=== PATIENT | male | born 1935 | race Caucasian/White ===

== ENCOUNTER 2020-12-24 10:48 | Inpatient (IN) | payer OTHER, MEDICARE ==
[~2020-12-24] VITALS: Ht 180.3 cm; Wt 92.5 kg
[~2020-12-24 10:48] MED LIST: AMIO200 PO; ASPI325 PO; ASPI81CH PO; AUGMENTIN600 MG/5 M PO; Actos45 MG PO; Avapro300 MG PO; B-121000 MCG PO; BUME2 PO; Cardizem Cd180 MG; ELIQUIS2.5 MG PO; GLYMET5 PO; IRBHYD300 PO; LEVEMIR100 UNIT/1 SC; METO50 PO; METO50ER PO; NAC600 MG PO; NISOLDIPINE8.5 MG PO; PARI1 PO; PRAV20 PO; VITAMIN D31000 UNI1 PO
[2020-12-24 11:13] LABS: BASOPHILS ABSOLUTE AUTO 0.09 K/mm3 (0.00-0.23); BASOPHILS PERCENT AUTO 1 % (0-2); EOSINOPHILS ABSOLUTE AUTO 0.66 K/mm3 (0.00-0.68); EOSINOPHILS PERCENT AUTO 7 % (0-6); Hematocrit 37.3 % (37.0-53.0); Hemoglobin 12.1 g/dL (13.5-17.5); IMMATURE GRAN ABSOLUTE AUTO 0.05 K/mm3 (0.00-0.10); IMMATURE GRAN PERCENT AUTO 1 % (0-1); LYMPHOCYTES ABSOLUTE AUTO 1.75 K/mm3 (0.84-5.20); LYMPHOCYTES PERCENT AUTO 18 % (21-46); MONOCYTES PERCENT AUTO 11 % (4-13); Mean Corpuscular HGB 31.4 pg (26.0-34.0); Mean Corpuscular HGB Conc 32.4 g/dL (31.5-36.5); Mean Corpuscular Volume 97 fL (80-100); Mean Platelet Volume 10.6 fL (9.1-12.4); NEUTROPHILS PERCENT AUTO 63 % (41-73); Platelet Count 244 K/mm3 (150-400); RDW Coefficient Variation 13.2 % (11.7-14.2); RDW Standard Deviation 47.2 fL (35.1-46.3); Red Blood Cell Count 3.85 M/mm3 (4.30-5.90); White Blood Cell Count 9.55 K/mm3 (4.00-11.30)
[2020-12-24 11:30] LABS: Bun/Creatinine Ratio 16.8 (12.0-20.0); Calcium, Blood 8.6 mg/dL (8.5-10.1); Creatinine, Blood 2.85 mg/dL (0.60-1.20); Potassium, Blood 4.9 mmol/L (3.5-5.5)
[2020-12-24] MEDS ORDERED: NISOLDIPINE17 MG PO (12:15)
[2020-12-24] MEDS ORDERED: IRBESARTAN300 M3 PO (12:15)
[2020-12-24] MEDS ORDERED: PRAVASTATIN SOD20 MG PO (12:15)
[2020-12-24] MEDS ORDERED: FLUTICASONE-SA1 EAC8 INH ×2 (12:16→12:58)
[2020-12-24] MEDS ORDERED: NOVOLOG100 UNIT/2 SC (12:17)
[2020-12-24] MEDS ORDERED: Toprol Xl200 MG PO (12:57)
[2020-12-24] MEDS ORDERED: SYNTHROID50 MC1 PO (12:57)
[2020-12-24] MEDS ORDERED: PRAVASTATIN SOD10 MG PO (12:58)
[2020-12-24 13:12] LABS: SARS-Cov-2 (COVID-19) PCR, MMC NEGATIVE (NEGATIVE)
--- NOTE | 2020-12-24 18:50 | NUR ---
SHIFT SUMMARY PT A&O X4. PT IN PLEASENT MOOD. PT'S SPOUSE WAS @ BEDSIDE DURING VISITING HOURS. PT VSS. GOOD URINE OUTPUT VIA MICHEL. TOLERATING ORAL INTAKE WELL. PT VERBALIZED RELUCTANCE TO NARCOTIC PAIN MEDICATION, MEDICATED PAIN W/ NON-NARC PER EMAR. RESTING IN BED.
[2020-12-25 04:18] LABS: BASOPHILS ABSOLUTE AUTO 0.06 K/mm3 (0.00-0.23); BASOPHILS PERCENT AUTO 1 % (0-2); EOSINOPHILS ABSOLUTE AUTO 0.32 K/mm3 (0.00-0.68); EOSINOPHILS PERCENT AUTO 3 % (0-6); Hematocrit 25.9 % (37.0-53.0); Hemoglobin 8.4 g/dL (13.5-17.5); IMMATURE GRAN ABSOLUTE AUTO 0.05 K/mm3 (0.00-0.10); IMMATURE GRAN PERCENT AUTO 1 % (0-1); LYMPHOCYTES ABSOLUTE AUTO 1.56 K/mm3 (0.84-5.20); LYMPHOCYTES PERCENT AUTO 16 % (21-46); MONOCYTES ABSOLUTE AUTO 1.28 K/mm3 (0.16-1.47); MONOCYTES PERCENT AUTO 13 % (4-13); Mean Corpuscular HGB 31.6 pg (26.0-34.0); Mean Corpuscular HGB Conc 32.4 g/dL (31.5-36.5); Mean Corpuscular Volume 97 fL (80-100); Mean Platelet Volume 11.1 fL (9.1-12.4); NEUTROPHILS ABSOLUTE AUTO 6.25 K/mm3 (1.96-9.15); NEUTROPHILS PERCENT AUTO 66 % (41-73); Platelet Count 201 K/mm3 (150-400); RDW Coefficient Variation 13.2 % (11.7-14.2); RDW Standard Deviation 47.3 fL (35.1-46.3); Red Blood Cell Count 2.66 M/mm3 (4.30-5.90); White Blood Cell Count 9.52 K/mm3 (4.00-11.30)
[2020-12-25 05:02] LABS: Albumin, Blood 2.7 g/dL (3.4-5.0); Albumin/Globulin Ratio 0.9 (0.8-1.8); Bun/Creatinine Ratio 17.8 (12.0-20.0); Calcium, Blood 7.6 mg/dL (8.5-10.1); Creatinine, Blood 3.25 mg/dL (0.60-1.20); Magnesium, Blood 2.2 mg/dL (1.6-2.4); Potassium, Blood 5.5 mmol/L (3.5-5.5); Total Protein, Blood 5.7 g/dL (6.4-8.2)
--- NOTE | 2020-12-25 06:17 | NUR ---
SHIFT SUMMARY S/P L FEMUR FX, A/O X4, VSS, TOLERATING DIET BUT NPO SINCE MIDNIGHT, PLAN FOR OR TODAY, ON BEDREST, NO ACUTE EVENTS THIS SHIFT. CALL LIGHT IN REACH, WILL CTM AND REPORT TO DAY RN.
--- NOTE | 2020-12-25 13:42 | NUR ---
PATIENT WAS BROUGHT TO DAY SURGERY FOR HIS PROCEDURE. History, Chart, Medications and Allergies reviewed before start of procedure.Lungs clear T/O to Auscultation. Patient confirms NPO status and agrees with scheduled surgery. Pre-Op teaching done. Pt verbalizes understanding.
--- NOTE | 2020-12-25 13:45 | NUR ---
PT TO SURGERY AT THIS TIME. TRANSPORTED ON BED.
--- NOTE | 2020-12-25 18:26 | NUR ---
PT BACK FROM SURGERY. DROWSY BUT AWAKENS EASILY TO VERBAL STIMULI. DRESSING TO L HIP CDI.
--- NOTE | 2020-12-25 19:20 | NUR ---
SHIFT SUMMARY PT HAS BEEN A/O X4. S/P L HIP SURGERY; TTWB. PT BACK FROM SURGERY THIS EVENING AND HAS BEEN DROWSY BUT AWAKENS EASILY. DENIES PAIN. VSS. PT ON 3L O2 POST-OP. DRESSING TO L HIP CDI. FAMILY NOTIFIED THAT PT WAS OUT OF SURGERY AND BACK IN ROOM.
[2020-12-26 04:46] LABS: BASOPHILS ABSOLUTE AUTO 0.02 K/mm3 (0.00-0.23); BASOPHILS PERCENT AUTO 0 % (0-2); EOSINOPHILS PERCENT AUTO 0 % (0-6); Hematocrit 21.4 % (37.0-53.0); Hemoglobin 6.7 g/dL (13.5-17.5); IMMATURE GRAN ABSOLUTE AUTO 0.05 K/mm3 (0.00-0.10); IMMATURE GRAN PERCENT AUTO 0 % (0-1); LYMPHOCYTES ABSOLUTE AUTO 0.89 K/mm3 (0.84-5.20); LYMPHOCYTES PERCENT AUTO 8 % (21-46); MONOCYTES ABSOLUTE AUTO 1.04 K/mm3 (0.16-1.47); MONOCYTES PERCENT AUTO 9 % (4-13); Mean Corpuscular HGB Conc 31.3 g/dL (31.5-36.5); Mean Corpuscular Volume 99 fL (80-100); Mean Platelet Volume 10.9 fL (9.1-12.4); NEUTROPHILS ABSOLUTE AUTO 9.66 K/mm3 (1.96-9.15); NEUTROPHILS PERCENT AUTO 83 % (41-73); Platelet Count 163 K/mm3 (150-400); RDW Coefficient Variation 13.3 % (11.7-14.2); RDW Standard Deviation 47.4 fL (35.1-46.3); Red Blood Cell Count 2.16 M/mm3 (4.30-5.90); White Blood Cell Count 11.66 K/mm3 (4.00-11.30)
[2020-12-26 05:15] LABS: Albumin, Blood 2.5 g/dL (3.4-5.0); Albumin/Globulin Ratio 0.8 (0.8-1.8); Bilirubin, Total 0.3 mg/dL (0.1-1.0); Bun/Creatinine Ratio 19.7 (12.0-20.0); Calcium, Blood 6.9 mg/dL (8.5-10.1); Creatinine, Blood 3.45 mg/dL (0.60-1.20); Globulin, Blood 3.1 g/dL (2.2-4.0); Magnesium, Blood 2.2 mg/dL (1.6-2.4); Potassium, Blood 5.5 mmol/L (3.5-5.5); Thyroid Stimulating Hormone 2.88 uIU/mL (0.360-4.800); Total Protein, Blood 5.6 g/dL (6.4-8.2)
--- NOTE | 2020-12-26 07:22 | NUR ---
SHIFT SUMMARY POD1 L INTRAMEDULLARY TROCHANTERIC LONG NAILING, A/O X4, VSS, PAIN WELL MANAGENT c TYLENOL PER PATIENT REQUEST (SEE EMAR), 1 UNIT BLOOD ORDERED NEAR END OF SHIFT DUE TO LOW HGB (SEE LABS). ABX COMPLETE. NO OTHER EVENTS THIS SHIFT. CALL LIGHT IN REACH, REPORT GIVEN TO DAY RN.
--- NOTE | 2020-12-26 16:57 | NUR ---
SHIFT SUMMARY PT HAS BEEN A/O X4. TOLERATING PO INTAKE. MICHEL IN PLACE DRAINING TO GRAVITY. DRESSING TO L HIP CHANGED BY DR GREGORIO THIS MORNING. PT WORKED WITH THERAPY AND WAS ABLE TO SIT IN CHAIR FOR A FEW HOURS. HE HAS BEEN DOING WELL TRANSFERRING WITH 1-2X ASSIST, FWW, AND GAIT BELT, MAINTAINING TTWB ON LLE. DR ROACH CONSULTED FOR PT TODAY; MEDS AND LABS ORDERED. PT ALSO HAD RENAL ULTRASOUND.
--- NOTE | 2020-12-27 04:12 | NUR ---
SHIFT SUMMARY NO ACUTE CHANGES THIS SHIFT. PT HAS RESTED WELL T/O NIGHT. AQUACEL DRESSINGS TO L LEG REMAIN UNCHANGED. DENIES NEED FOR PAIN MEDICATONS. ANAND PATENT. PT USES CALL LIGHT APPROPRIATELY.
[2020-12-27 04:51] LABS: Hematocrit 22.8 % (37.0-53.0); Hemoglobin 7.4 g/dL (13.5-17.5); Mean Corpuscular HGB 30.8 pg (26.0-34.0); Mean Corpuscular HGB Conc 32.5 g/dL (31.5-36.5); Mean Corpuscular Volume 95 fL (80-100); Mean Platelet Volume 11.2 fL (9.1-12.4); Platelet Count 164 K/mm3 (150-400); RDW Coefficient Variation 14.6 % (11.7-14.2); RDW Standard Deviation 50.8 fL (35.1-46.3); White Blood Cell Count 11.83 K/mm3 (4.00-11.30)
[2020-12-27 05:26] LABS: Albumin, Blood 2.4 g/dL (3.4-5.0); Albumin/Globulin Ratio 0.8 (0.8-1.8); Bilirubin, Total 0.4 mg/dL (0.1-1.0); Bun/Creatinine Ratio 21.2 (12.0-20.0); Calcium, Blood 7.8 mg/dL (8.5-10.1); Creatinine, Blood 3.45 mg/dL (0.60-1.20); Globulin, Blood 3.2 g/dL (2.2-4.0); Magnesium, Blood 1.8 mg/dL (1.6-2.4); Phosphorus, Blood 3.3 mg/dL (2.5-4.9); Potassium, Blood 5.1 mmol/L (3.5-5.5); Total Protein, Blood 5.6 g/dL (6.4-8.2)
[2020-12-27 14:08] LABS: SARS-Cov-2 (COVID-19) PCR, MMC NEGATIVE (NEGATIVE)
--- NOTE | 2020-12-27 16:44 | NUR ---
DISCHARGE SUMMARY PT A/O X4; PLEASANT AND COOPERATIVE WITH CARE. POD #2 FOR L FEMUR REPAIR. 1-2 ASSIST WHEN UP. BECAME WEAK WHEN AMBULATING IN THE [place] WITH PHYSICAL THERAPY AND ALMOST FELL. THIS HELPED THE PT TO MAKE THE DECISION TO DC TO SNF RATHER THAN HOME HEALTH. DENIES THE NEED FOR PAIN MEDICATION AT THIS TIME. MICHEL DC'D AND PT VOIDING ON HIS OWN. VSS. [facility].
== END 2020-12-27 16:29 | DRG 480 ==
LOC: ER 10:48 → ERHOLD 12:47 → SURS 12:47
PROVIDERS: Emergency Medicine; Internal Medicine; Nurse Practitioner Acute Care; Orthopaedic Surgery; ADMIT Internal Medicine
PROC: 0QS704Z Reposition Left Upper Femur with Internal Fixation Device, Open Approach (ICD-10-PCS; principal; 2020-12-25 14:15)
PROC: 30233N1 Transfusion of Nonautologous Red Blood Cells into Peripheral Vein, Percutaneous Approach (ICD-10-PCS; 2020-12-26)
DX: S72.92XA Unspecified fracture of left femur, initial encounter for closed fracture (principal); N17.0 Acute kidney failure with tubular necrosis; N25.81 Secondary hyperparathyroidism of renal origin; N18.4 Chronic kidney disease, stage 4 (severe); I13.0 Hypertensive heart and chronic kidney disease with heart failure and stage 1 through stage 4 chronic kidney disease, or unspecified chronic kidney disease; I50.22 Chronic systolic (congestive) heart failure; E87.5 Hyperkalemia; E78.5 Hyperlipidemia, unspecified; I48.91 Unspecified atrial fibrillation; E11.22 Type 2 diabetes mellitus with diabetic chronic kidney disease; E03.9 Hypothyroidism, unspecified; I44.7 Left bundle-branch block, unspecified; D63.1 Anemia in chronic kidney disease; Z79.01 Long term (current) use of anticoagulants; Z88.8 Allergy status to other drugs, medicaments and biological substances; Z79.84 Long term (current) use of oral hypoglycemic drugs; Z95.810 Presence of automatic (implantable) cardiac defibrillator; Z98.890 Other specified postprocedural states; Z79.82 Long term (current) use of aspirin; Z79.899 Other long term (current) drug therapy; W01.0XXA Fall on same level from slipping, tripping and stumbling without subsequent striking against object, initial encounter
CPT/HCPCS: 36415; 36430; 51702; 71045; 72170; 73552; 76770; 80048; 80053; 82728; 82947; 83540; 83550; 83605; 83735; 84100; 84443; 85025; 85027; 86850; 86900; 86901; 86923; 93005; 93010; 93284; 94640; 94664; 94760; 97116; 97161; 97165; 97530; 97535; 99285-25; A9270; C1713; C1769; J0690; J0881; J1100; J2370; J2405; J2704; J3010; J3370; J7030; J7050; P9016; U0004

== ENCOUNTER 2021-10-23 06:01 | Day surgery (SDC) | payer MEDICARE, OTHER ==
[~2021-10-23] VITALS: Ht 180.3 cm; Wt 88.0 kg
[~2021-10-23 06:01] MED LIST changes: +FLUTICASONE-SA1 EAC8 INH; +IRBESARTAN300 M3 PO; +NISOLDIPINE17 MG PO; +NOVOLOG100 UNIT/2 SC; +PRAVASTATIN SOD10 MG PO; +PRAVASTATIN SOD20 MG PO; +SYNTHROID50 MC1 PO; +Toprol Xl200 MG PO
--- NOTE | 2021-10-23 08:41 | NUR ---
PT BROUGHT TO RECOVERY ROOM VIA RECLINER, LEFT SIDED DEVICE CHANGE OUT SUCCESSFULL. INCISION COVERED WITH TELFA AND TEGADERM, NO BLEEDING OR OOZING NOTED. PT AOX4, DENIES PAIN. VSS. CALL LIGHT IN REACH. WILL CONTINUE TO MONITOR. TOLERATES PO FLUIDS.
--- NOTE | 2021-10-23 09:18 | NUR ---
PT SITTING UP IN RECLINER EATING BREAKFAST. PT'S IN ROOM CALL LIGHT IN REACH. LACW PACER SITE SOFT NON-TENDER WITH NO HEMATOMA, NO BLEEING AND INTACT DRESSING. PT DENIES CHEST PAIN.
--- NOTE | 2021-10-23 10:53 | NUR ---
PT IV ANCEF INFUSING AT THIS TIME. PT OFFERS NO C/O'S. LEFT CHEST SITE STABLE.
--- NOTE | 2021-10-23 11:07 | NUR ---
IV ANCEF INFUSED, SALINE LOCK REMOVED.
--- NOTE | 2021-10-23 13:30 | NUR ---
PATIENT VERBALIZED UNDERSTANDING OF DISCHARGE INSTRUCTIONS AND PRECAUTIONS. QUESTIONS ANSWERED. ANCEF 1GRAM IVPB INFUSED. IV DCED WITH CATHETER INTACT. DRESSING OVER DEVICE D&I. NO HEMATOMA, NO BLEEDING. PATIENT TAKEN VIA WHEEL CAHIR TO CAR. SON DRIVING.
== END 2021-10-23 15:47 | disposition home or self-care (01) ==
LOC: MHTC 06:01
DX: Z45.02 Encounter for adjustment and management of automatic implantable cardiac defibrillator (principal); I12.9 Hypertensive chronic kidney disease with stage 1 through stage 4 chronic kidney disease, or unspecified chronic kidney disease; E11.22 Type 2 diabetes mellitus with diabetic chronic kidney disease; N18.9 Chronic kidney disease, unspecified; I25.10 Atherosclerotic heart disease of native coronary artery without angina pectoris; I42.8 Other cardiomyopathies; I48.91 Unspecified atrial fibrillation; Z95.810 Presence of automatic (implantable) cardiac defibrillator
CPT/HCPCS: 33264; 82947; 99152; 99153; C1781; C1882; J0690; J1644; J2250; J3010; J7030; J7040